=== PATIENT | male | born 1970 | race African-American/Black ===

== ENCOUNTER 2017-11-21 18:36 | Emergency (ER) | payer BC ==
[2017-11-21] MEDS ORDERED: ACETAMINOPHEN 325 MG TABLET PO ONE (20:03)
[2017-11-21] MEDS ORDERED: LIDOCAINE 4%/TETRACAINE 0.5%/EPI 0.18% 5 ML TOPICAL SOLN TOP ONE (20:03)
[2017-11-21] MEDS ORDERED: SULFAMETHOXAZOLE/TRIMETHOPRIM 800-160 MG TABLET PO ONE (20:03)
[2017-11-21] MEDS ORDERED: IBUPROFEN 800 MG TABLET PO ONE (20:03)
--- NOTE | 2017-11-21 20:06 | ER Document Report ---
HPI - HPI Patient complains to provider of: abscess base of neck Onset: Other - has had it for a while but just recently got red and increased pain Pain Level: 3 Context: 47 yo male c/o abscess base of neck, upper back for several days has gotten red and more tender. no hx MRSA. no fever. Associated Symptoms: None Exacerbated by: Denies Relieved by: Denies Similar symptoms previously: No Recently seen / treated by doctor: No - ROS ROS below otherwise negative: Yes Systems Reviewed and Negative: Yes All other systems reviewed and negative Past Medical History - General Information source: Patient - Social History Smoking Status: Never Smoker Frequency of alcohol use: None Drug Abuse: None Lives with: Spouse/Significant other Family History: Reviewed & Not Pertinent - Medical History Medical History: Negative Surgical Hx: Negative Vertical Provider Document - CONSTITUTIONAL Agree With Documented VS: Yes Exam Limitations: No Limitations General Appearance: No Apparent Distress - INFECTION CONTROL TRAVEL OUTSIDE OF THE [place] IN LAST 30 DAYS: No - HEENT HEENT: Normocephalic - NECK Neck: Supple - RESPIRATORY Respiratory: Breath Sounds Normal, No Respiratory Distress O2 Sat by Pulse Oximetry: 99 - CARDIOVASCULAR Cardiovascular: Regular Rate, Regular Rhythm - DERM Integumentary: Warm, Dry, Abscess - sebaceous abscess upper mid back at base of neck Course - Vital Signs Vital signs: Temp Pulse Resp BP Pulse Ox 98.4 F 64 16 169/99 H 99 11/21/17 18:49 11/21/17 18:49 11/21/17 18:49 11/21/17 18:49 11/21/17 18:49 Procedures - Incision and Drainage Upper Back Time completed: 20:55 Type: Simple Anesthetic type: 1% Lidocaine mL's of anesthetic: 4 Blade size: 11 I&D procedure: Betadine prep applied Incision Method: Incision made by scalpel Amount/type of drainage: pus and sebaceous material and most of cyst sac removed Adult Head Front/Back picture: 1 - incision location Discharge - Discharge Clinical Impression: I and D sebaceous abscess, back Condition: Good Disposition: HOME, SELF-CARE Instructions: Abscess ([facility]), Post Incision and Drainage, Trimethoprim-Sulfa ( [facility]) Additional Instructions: warm compress remove dressing in 2 days, wash vigorously with soap and water daily, dry dressing to er if worse finish the antibiotics motrin and tylenol for pain Prescriptions: Ibuprofen [Motrin 800 mg Tablet] 800 mg PO Q8HP PRN #30 tablet PRN Reason: Sulfamethoxazole/Trimethoprim [Sulfamethoxazole-Tmp Ds Tablet] 1 each PO BID # 14 tablet Forms: Return to Work
[2017-11-21 21:14] VITALS: BP 160/103
== END 2017-11-21 21:15 | disposition home or self-care (01) ==
LOC: ER 18:36
DX: L02.212 Cutaneous abscess of back [any part, except buttock and flank] (principal)
CPT/HCPCS: 99283; 10060; J3490

== ENCOUNTER 2020-11-07 11:32 | Day surgery (SDC) | payer OTHER ==
[~2020-11-07 11:32] MED LIST: PROPOFOL INJ 200 MG/20 ML VIAL IV ONE
[2020-11-07 13:42] VITALS: BP 138/44
--- NOTE | 2020-11-07 13:55 | Operative Report ---
Operative Report DATE OF SURGERY: 11/07/20 Operative Report: The risks, benefits and alternatives are discussed with the patient take to OR and propofol sedation provided scope is inserted into the patient's rectum scope is advanced to the cecum prep is good the various segments are evaluated retroflexion is performed PREOPERATIVE DIAGNOSIS: colorectal cancer screening POSTOPERATIVE DIAGNOSIS: right colon inflammation. internal hemorrohoids OPERATION: colonoscopy with biopsy SURGEON: ERICK MEAD ANESTHESIA: LMAC TISSUE REMOVED OR ALTERED: as noted above COMPLICATIONS: none ESTIMATED BLOOD LOSS: none INTRAOPERATIVE FINDINGS: as noted above PROCEDURE: patient tolerated the procedure well no post procedure complications are noted discharge date: 11/07/2020 discharge diet: regular discharge activity : regular patient to call the office or go to ED if having any problems follow up on pathology 10 year surveillance
== END 2020-11-07 14:03 | disposition home or self-care (01) ==
LOC: OROUT 11:32
PROVIDERS: ATTEND Internal Medicine Gastroenterology
DX: Z12.11 Encounter for screening for malignant neoplasm of colon (principal); K52.9 Noninfective gastroenteritis and colitis, unspecified; K64.8 Other hemorrhoids; I10 Essential (primary) hypertension; Z79.899 Other long term (current) drug therapy; F90.2 Attention-deficit hyperactivity disorder, combined type; Z20.822 Contact with and (suspected) exposure to COVID-19
CPT/HCPCS: 45380; 88305 ×2; J2704; 812